=== PATIENT | male | born 1945 | race Caucasian/White ===

== ENCOUNTER 2020-12-28 09:37 | Day surgery (SDC) | payer MEDICARE, OTHER ==
[~2020-12-28] VITALS: Ht 170.2 cm; Wt 92.3 kg
[2020-12-28] VITALS (7 sets, daily range): BP systolic 107–139; BP diastolic 60–83
[~2020-12-28 09:37] MED LIST: BENZ-38 PO; CELE200C PO; CETI10TA15 PO; FAMO20TA8 PO; HYDR-4353 PO; LOSA1TAB39 PO; SILD25TA PO; TEST5GEL2 TOP
[2020-12-28] MEDS ORDERED: CLINDAmcin 900mg/NS 50ml IVPB 50 ML IV ONE (10:05)
[2020-12-28] MEDS ORDERED: midazolam 1 mg/ML 2ml injection ONE ×3 (10:16→11:07)
[2020-12-28] MEDS ORDERED: fentaNYL/PF 50MCG/1 ML 2ML syringe ONE ×2 (10:17→11:41)
[2020-12-28] MEDS ORDERED: LIDOcaine 1% W/epiNEPHrine 1:100,000 20ml vial ONE (10:17)
[2020-12-28] MEDS ORDERED: ceFAZolin 1000mg inj ONE (10:17)
[2020-12-28] MEDS ORDERED: ATOR40TA72 PO (10:19)
[2020-12-28] MEDS ORDERED: TADA5TAB2 PO (10:19)
[2020-12-28] MEDS ORDERED: DULO60CA65 PO (10:19)
[2020-12-28] MEDS ORDERED: vancomycin 1,000mg inj ONE (10:22)
[2020-12-28 10:38] LABS: BASOPHILS # (AUTO) 0.1 X10'3 (0-0.2); BASOPHILS % (AUTO) 1.5 % (0-1); EOSINOPHILS # (AUTO) 0.2 X10'3 (0-0.9); EOSINOPHILS % (AUTO) 3.3 % (0-6); HEMATOCRIT 44.1 % (42.0-52.0); HEMOGLOBIN 14.7 g/dl (14.0-17.9); LYMPHOCYTES # (AUTO) 1.2 X10'3 (1.1-4.8); LYMPHOCYTES % (AUTO) 19.5 % (21-51); MEAN CORPUSCULAR HEMOGLOBIN 29.3 PG (27.0-31.0); MEAN CORPUSCULAR HGB CONC 33.4 g/dL (33.0-36.5); MEAN CORPUSCULAR VOLUME 87.5 FL (78-98); MEAN PLATELET VOLUME 7.6 FL (7.4-10.4); MONOCYTES # (AUTO) 0.6 X10'3 (0-0.9); NEUTROPHILS # (AUTO) 4.2 X10'3 (1.8-7.7); NEUTROPHILS % (AUTO) 65.7 % (42-75); PLATELET COUNT 321 X10'3 (140-440); RED BLOOD COUNT 5.04 X10'6 (4.70-6.10); RED CELL DISTRIBUTION WIDTH 15.9 % (11.5-14.5); WHITE BLOOD COUNT 6.3 X10'3 (4.5-11.0)
[2020-12-28 10:49] LABS: ALBUMIN 3.6 G/DL (3.4-5.0); ANION GAP 8 (8-16); BLOOD UREA NITROGEN 16 MG/DL (7-18); BUN/CREATININE RATIO 13.4 (5.4-32.0); CALCIUM 8.8 MG/DL (8.5-10.1); CHLORIDE 104 MMOL/L (99-107); CREATININE 1.19 MG/DL (0.60-1.10); GLUCOSE 115 MG/DL (70-104); POTASSIUM 4.1 MMOL/L (3.5-5.1); SODIUM 141 MMOL/L (135-145); TOTAL CARBON DIOXIDE 29.1 MMOL/L (24-32); eGFR 59 ML/MIN
[2020-12-28] MEDS ORDERED: iohexol 350 MG/ML 50ML vial IV ONE (11:23)
[2020-12-28] MEDS ORDERED: normal saline 1000ml 1,000 ML IV SCH (12:25)
[2020-12-28] MEDS ORDERED: HYDROcodone/acetaminophen 5mg/325mg tablet PO PRN (12:25)
[2020-12-28] MEDS ORDERED: HYDROcodone/acetaminophen 10/325mg tab PO PRN (12:25)
[2020-12-28] MEDS ORDERED: ketorolac tromethamine 15mg/ml inj. IV ONE (12:25)
== END 2020-12-28 14:15 | disposition home or self-care (01) ==
LOC: SSTAY O 09:37
PROVIDERS: ATTEND Internal Medicine Cardiovascular Disease
DX: G90.01 Carotid sinus syncope (principal); I45.2 Bifascicular block; Z79.01 Long term (current) use of anticoagulants; Z79.899 Other long term (current) drug therapy; Z88.0 Allergy status to penicillin
CPT/HCPCS: 33208; 36415; 71045; 80048; 85025; 85610; 93005; 99152; 99153; C1785; C1894; C1898; J0690; J2250; J3010; J3370; J7030; Q9967; A4565; A4620

== ENCOUNTER 2021-06-25 15:44 | Emergency (ER) | payer MEDICARE, OTHER ==
[~2021-06-25] VITALS: Ht 172.7 cm; Wt 90.9 kg
[~2021-06-25 15:44] MED LIST changes: +ATOR40TA72 PO; -BENZ-38 PO; +DULO60CA65 PO; -FAMO20TA8 PO; -HYDR-4353 PO; -SILD25TA PO; +TADA5TAB2 PO
[2021-06-25 15:47] VITALS: BP 162/66
[2021-06-25] MEDS ORDERED: ketorolac tromethamine 15mg/ml inj. IM ONE (17:30)
[2021-06-25] MEDS ORDERED: orphenadrine citrate 60mg/2ml inj. IM ONE (17:30)
[2021-06-25] MEDS ORDERED: ORPH100T2 PO (18:04)
[2021-06-25] MEDS ORDERED: IBUP-1984 PO (18:04)
== END 2021-06-25 19:03 | disposition home or self-care (01) ==
LOC: ER 15:45
DX: M54.50 Low back pain, unspecified (principal); G89.29 Other chronic pain; M25.562 Pain in left knee; Z72.89 Other problems related to lifestyle; Z88.0 Allergy status to penicillin; Z79.899 Other long term (current) drug therapy
CPT/HCPCS: 29505; 73564; 96372; 99284; J1885; J2360